=== PATIENT | female | born 1975 | race Caucasian/White ===

== ENCOUNTER 2018-04-26 07:03 | Outpatient (CLI) | payer OTHER, SELFPAY ==
[2018-04-26 08:02] LABS: D-Dimer 285 ng/mlFEU (<500)
== END 2018-04-26 07:04 ==
PROVIDERS: Visit Provider Nurse Practitioner
DX: I27.20 Pulmonary hypertension, unspecified (principal)
CPT/HCPCS: 36415; 85379

== ENCOUNTER 2018-04-29 03:51 | Outpatient (CLI) | payer OTHER, SELFPAY ==
--- NOTE | 2018-04-29 10:00 | PFT_ITS ---
PULMONARY FUNCTION TEST REPORT DATE OF SERVICE - May 04, 2018 REQUESTING PROVIDER - Annette Will N.P. INTERPRETATION OF STUDY Spirometry shows mild obstructive airways disease with no significant bronchodilator response. LUNG VOLUMES - Lung volumes show no evidence of restriction. DIFFUSION CAPACITY- Normal. AIRWAY RESISTANCE - Normal. IMPRESSION Mild obstructive airways disease with no significant bronchodilator response. Clinical correlation recommended. Katerine Boyd M.D. YEVGENIY/renetta T - 05/04/2018 HAND SIGNED COPY OF THIS NOTE IS SCANNED INTO THE EMR
[2018-04-29] MEDS: Albuterol HFA 18 GM 200 PUFF INH IH (11:14)
[2018-04-29] MEDS: Inhaler, Assist Device 1 EACH MC (11:14)
== END 2018-04-29 03:52 ==
PROVIDERS: Visit Provider Nurse Practitioner
DX: R06.00 Dyspnea, unspecified (principal); I27.20 Pulmonary hypertension, unspecified; Z87.891 Personal history of nicotine dependence; J98.8 Other specified respiratory disorders
CPT/HCPCS: 94060; 94150; 94726; 94729

== ENCOUNTER 2018-09-03 17:04 | Outpatient (REF) | payer OTHER, SELFPAY ==
[2018-09-03 21:03] LABS: Iron 38 ug/dL (50-175); Total Iron Binding Capacity 341 ug/dL (250-450); Transferrin Sat 11 % (15-50)
[2018-09-03 21:28] LABS: ALT 26 U/L (12-78); AST 16 U/L (15-37); Albumin 3.5 g/dL (3.4-5.0); Alkaline Phosphatase 88 U/L (46-116); Anion Gap 9.5 mmol/L (3-11); BUN 11 mg/dL (7-18); Bilirubin, Total 0.2 mg/dL (0.2-1.0); CO2 27.5 mmol/L (21.0-32.0); CREATININE 0.83 mg/dL (0.55-1.02); Calcium 9.3 mg/dL (8.5-10.1); Chloride 104 mmol/L (98-107); Ferritin 43 ng/mL (8-388); Glucose 91 mg/dL (70-100); Sodium 141 mmol/L (136-145); TSH (W/Ref FT4) 1.26 uIU/mL (0.358-3.74); Total Protein 7.7 g/dL (6.4-8.2); Vitamin B12 435 pg/mL (193-986)
== END 2018-09-03 17:24 ==
LOC: NCHCN 17:04
PROVIDERS: PCP Nurse Practitioner; Visit Provider Nurse Practitioner
DX: L65.9 Nonscarring hair loss, unspecified (principal)
CPT/HCPCS: 80053; 82607; 82728; 83540; 83550; 84443; 85025

== ENCOUNTER 2018-09-09 13:04 | Outpatient (REF) | payer OTHER, SELFPAY ==
[2018-09-09 18:35] LABS: Abs Immature Grans 0.02 k/cumm (0.0-0.09); Absolute Basophil Count 0.05 k/cumm (0.0-0.2); Absolute Eosinophil Count 0.16 k/cumm (0.0-0.7); Absolute Lymphocyte Count 2.22 k/cumm (1.2-3.4); Absolute Monocyte Count 0.66 k/cumm (0.11-0.7); Absolute Neutrophil Count 6.54 k/cumm (1.2-6.7); Basophils % 0.5; Eosinophils % 1.7; HCT 42.1 % (36.0-46.0); HGB 13.7 g/dL (12.0-15.5); Immature Grans % 0.2; Mean Corp. HGB Concentration 32.5 g/dL (32.0-36.0); Mean Corpuscular Hemoglobin 26.9 pg (27.0-33.0); Mean Corpuscular Volume 82.5 fL (80-95); Monocytes % 6.8; Neutrophils % 67.8; Platelet Count 406 x1000/uL (130-400); RBC Distribution Width 13.7 % (11.7-14.6); White Blood Cell Count 9.65 k/cumm (4.4-10.8)
== END 2018-09-09 13:24 ==
LOC: NCHCN 13:04
PROVIDERS: PCP Nurse Practitioner; Visit Provider Nurse Practitioner
DX: L65.9 Nonscarring hair loss, unspecified (principal)
CPT/HCPCS: 85025

== ENCOUNTER 2018-12-16 07:18 | Outpatient (CLI) | payer BC, SELFPAY ==
[2018-12-16 07:50] LABS: Abs Immature Grans 0.01 k/cumm (0.0-0.09); Absolute Basophil Count 0.07 k/cumm (0.0-0.2); Absolute Eosinophil Count 0.16 k/cumm (0.0-0.7); Absolute Lymphocyte Count 1.59 k/cumm (1.2-3.4); Absolute Monocyte Count 0.58 k/cumm (0.11-0.7); Absolute Neutrophil Count 4.02 k/cumm (1.2-6.7); Basophils % 1.1; Eosinophils % 2.5; HCT 41.4 % (36.0-46.0); HGB 13.7 g/dL (12.0-15.5); Immature Grans % 0.2; Lymphocytes % 24.7; Mean Corp. HGB Concentration 33.1 g/dL (32.0-36.0); Mean Corpuscular Hemoglobin 27.8 pg (27.0-33.0); Mean Platelet Volume 9.8 fL (8.0-11.0); Neutrophils % 62.5; Platelet Count 317 x1000/uL (130-400); RBC 4.93 m/cumm (4.00-5.20); RBC Distribution Width 13.6 % (11.7-14.6); White Blood Cell Count 6.43 k/cumm (4.4-10.8)
[2018-12-16 08:48] LABS: Iron 83 ug/dL (50-175); Total Iron Binding Capacity 312 ug/dL (250-450); Transferrin Sat 27 % (15-50)
[2018-12-16 09:05] LABS: Ferritin 76 ng/mL (8-388)
== END 2018-12-16 07:38 ==
PROVIDERS: PCP Nurse Practitioner; Visit Provider Nurse Practitioner
DX: E61.1 Iron deficiency (principal)
CPT/HCPCS: 36415; 82728; 83540; 83550; 85025

== ENCOUNTER 2019-03-30 09:58 | Outpatient (CLI) | payer BC, SELFPAY ==
--- NOTE | 2019-03-30 14:32 | DI.RAD_ITS ---
SYMPTOM/DIAGNOSIS: LEFT HIP PAIN M25.552 LEFT HIP: Two views. Mild degenerative changes are seen of the hips bilaterally. The bones are intact and normally mineralized. The sacroiliac joints and symphysis pubis appear well maintained. The soft tissues are unremarkable. IMPRESSION: Mild degenerative changes of the hips.
--- NOTE | 2019-03-30 14:33 | DI.RAD_ITS ---
SYMPTOM/DIAGNOSIS: LOW BACK KPAIN, M54.5 LUMBAR SPINE: AP, lateral and bilateral oblique views of the lumbar spine. There is normal alignment. No spondylolysis or spondylolisthesis. There are degenerative changes seen at the facets at L5-S1. There is a vacuum disc space narrowing and end plate osteophytes at L5-S1. L5 is a limbus vertebra. Mild small end plate osteophytes are seen at L4-5 and L3-L4. The bones are normally mineralized. IMPRESSION: Mild degenerative changes seen in the lumbar spine.
== END 2019-03-30 10:18 ==
PROVIDERS: PCP Nurse Practitioner Family; Visit Provider Nurse Practitioner Family
DX: M54.5 Low back pain (principal); M25.78 Osteophyte, vertebrae; M47.816 Spondylosis without myelopathy or radiculopathy, lumbar region; M25.552 Pain in left hip; M16.0 Bilateral primary osteoarthritis of hip
CPT/HCPCS: 72110; 73502

== ENCOUNTER 2019-05-18 12:18 | Emergency (ER) | payer BC, SELFPAY ==
[2019-05-18 12:23] VITALS: BP 137/86; PULSE 98; RESP 16; TEMP 36.5; O2SAT 99
--- NOTE | 2019-05-18 12:38 | ED.GENADUL_ITS ---
Discharge Plan Disposition Patient Disposition: HOME Condition: Stable Discharge Details Chief Complaint: Nk/Back Pain Clinical Impression: Low back pain Primary Care Provider: Laura Hooper ED Provider: Prakash Stewart Home Meds and New Rx's Prescriptions: New prednisone 20 mg tablet 60 mg PO DAILY 5 Days Qty: 15 RF: 0 gabapentin 100 mg capsule 100 mg PO TID Qty: 30 RF: 0 Continued ibuprofen 100 MG/5 ML suspension 400 mg PO Q4H PRN RF: 0 acetaminophen [Tylenol] 325 MG tablet 325 mg PO Q4H PRN RF: 0 omeprazole [Prilosec] 20 MG capsule,delayed release(DR/EC) 40 mg PO DAILY RF: 0 paroxetine HCl [Paxil] 30 MG tablet 30 mg PO DAILY RF: 0 norethindrone acetate 5 MG tablet 5 mg PO DAILY Qty: 60 RF: 0 cyclobenzaprine 10 mg Tablet 10 mg PO PRN PRNRF: 0 Discharge Instructions Additional Instructions: follow up as scheduled with your primary care provider and for the MRI if you develop difficulty urinating, severe worsening pain, fevers return to the emergency department Medical Decision Making 43 yo female comes in with lower back pain. HAs been having lower back pain since last July but has worsened over the past week or so and is due to have mri on Thursday. She has been taking nsaids and muscle relaxers and continues to have pain. Denies fevers, chills, weakness. She has no saddle anesthesia, urinary retnetion, normal reflexes and distal senastion and pulses, denies fevers or ivdu, no findings on history or exam to suggest cauda equina or sea so do not feel emergent mri indicated. Has pain over the left lower back over the lateral sacrum, suspect either bursitis or arthritis, less likely sciatica. will start her on steroids and also gabapentin, advised f/u with pcp and return precautions given Differential Diagnosis sciatica, bursitis HPI General Mode of arrival: ambulatory . Date/Time Provider Initiated Documentation: 05/18/19 12:19 . Limitations to Documentation: no limitations . Information obtained by: patient . History of Present Illness 43 year old F presents to the emergency department with the chief complaint of left lower back pain, described as moderate, Quality is described as aching, Patient started experiencing this month(s) (8) and it has been constant. No relieving factors improve symptom(s), No exacerbating factors reported . Patient did receive the following treatments prior to arrival, NSAID Related Data Home Medications Medication Instructions Recorded Confirmed acetaminophen [Tylenol] 325 mg PO Q4H PRN tab-cap 12/13/12 05/18/19 ibuprofen 400 mg PO Q4H PRN ml 12/13/12 05/18/19 omeprazole [Prilosec] 40 mg PO DAILY tab-cap 12/13/12 05/18/19 paroxetine HCl [Paxil] 30 mg PO DAILY tab-cap 10/22/17 05/18/19 norethindrone acetate 5 mg PO DAILY #60 tab-cap 11/09/17 05/18/19 cyclobenzaprine 10 mg PO PRN PRN 05/18/19 05/18/19 gabapentin 100 mg PO TID #30 cap 05/18/19 prednisone 60 mg PO DAILY 5 Days #15 tab 05/18/19 Previous Rx's Medication Instructions Recorded norethindrone acetate 5 mg PO DAILY #60 tab-cap 11/09/17 gabapentin 100 mg PO TID #30 cap 05/18/19 prednisone 60 mg PO DAILY 5 Days #15 tab 05/18/19 Allergies Allergy/AdvReac Type Severity Reaction Status Date / Time bacitracin Allergy Intermediate RASH Unverified 05/18/19 12:27 epinephrine Allergy Intermediate TACHYCARDIA Unverified 05/18/19 12:27 gramicidin D Allergy Intermediate SKIN RASH Unverified 05/18/19 12:27 iodine Allergy Intermediate RESPIRATORY Unverified 05/18/19 12:27 PROBLEMS morphine Allergy Intermediate DIFFICULTY Unverified 05/18/19 12:27 BREATHING neomycin Allergy Intermediate SKIN RASH Unverified 05/18/19 12:27 polymyxin B sulfate Allergy Intermediate SKIN RASH Unverified 05/18/19 12:27 [From Polysporin] HOMATROPHINE Allergy Intermediate TACHYCARDIA Uncoded 05/18/19 12:27 STEROIDS AdvReac Intermediate TACYCARDIA, Uncoded 05/18/19 12:27 HYPOTENSION General Stated Complaint: Nk/Back Pain [place]: 4 Review of Systems Review of Systems All systems reviewed & are unremarkable except as noted in HPI and below Constitutional Denies chills, Denies fever(s) and Denies weakness Cardiovascular Denies chest pain and Denies dyspnea Respiratory Denies dyspnea Gastrointestinal Denies abdominal pain, Denies nausea and Denies vomiting Musculoskeletal Denies joint swelling Neurologic Denies weakness PFSH Medical History Abnormal uterine bleeding Mirnea IUD use x15yr. Removed 08/2017. Episode of menorrhagia 10/2017 - Rx with Norethindrone TID with plan to taper over a month. Anxiety BMI 39.0-39.9,adult Pt has gained 100lbs in the past 10yrs. Cardiac arrhythmia heart palpitations. Depression Surgical History Appendectomy (~2005) Diagnostic Laproscopy (~2004) for eval of pelvic pain, heavy menses. No endometriosis. NVH. Open Carpal Tunnel release (~2002) Right Family History Mother Essential hypertension Father Essential hypertension Grandfather Essential hypertension Grandmother Essential hypertension Other Heart disease Social History Smoking/Tobacco Use Status: Current every day Drug use: Never Do you feel safe at home: Yes Do you feel safe in your relationship?: Yes Exam Const General: no acute distress Orientation: alert HENMT Head: normal to inspection Ears: external ears normal General nose exam: external nose normal Mouth: moist mucous membranes Eyes General: appearance normal, both eyes and all related structures Neck Neck: normal visual inspection Resp Effort & Inspection: normal respiratory effort and able to speak in complete sentences Cardio Rate: regular rate Back/Spine/Pelvis Back: no CVA tenderness Skin General skin exam: no rashes or lesions noted Neuro General: alert and oriented x3 Extrem General: normal to inspection Psych Mental Status: mental status grossly normal Course Vital Signs Temperature 36.5 C 05/18/19 12:23 Pulse 98 H 05/18/19 12:23 Respiratory Rate 16 05/18/19 12:23 Blood Pressure 137/86 05/18/19 12:23 Pulse Oximetry 99 05/18/19 12:23 Temperature 36.5 C 05/18/19 12:23 Temperature Source Temporal Artery Scan 05/18/19 12:23 Pulse 98 H 05/18/19 12:23 Respiratory Rate 16 05/18/19 12:23 Respiratory Effort 05/18/19 12:32 Blood Pressure 137/86 05/18/19 12:23 Blood Pressure Position Standing 05/18/19 12:23 Pulse Oximetry 99 05/18/19 12:23 Oxygen Delivery Method Room Air 05/18/19 12:23 Oxygen Flow Rate 0 05/18/19 12:23
== END 2019-05-18 12:48 | disposition home or self-care (01) ==
LOC: ER 12:44
PROVIDERS: Emergency Provider Emergency Medicine; PCP Nurse Practitioner Family
DX: M54.5 Low back pain (principal)
CPT/HCPCS: 99283

== ENCOUNTER 2019-05-20 01:33 | Outpatient (CLI) | payer BC, SELFPAY ==
--- NOTE | 2019-05-20 15:30 | DI.MRI_ITS ---
SYMPTOMS/DIAGNOSIS: CHRONIC LEFT-SIDED LOW BACK PAIN WITH LEFT-SIDED SCIATICA, M54.42, G89.29, LEFT HIP AND LEG PAIN, NUMBNESS AND TINGLING BELOW THE KNEE MRI OF THE LUMBAR SPINE: Comparison is made with plain films dated March,. T1, T2 and STIR sagittal, T1 and T2 axial sequences were performed. There is sacralization of L5. The lower thoracic levels through L3-4 appear normal. At L3-4, there is a large central and slightly left-sided disc herniation. It causes severe narrowing of the AP dimension of the central canal with compression of nerve roots posteriorly. There are no significant facet degenerative changes and there is no significant neural foraminal narrowing at any level. The L4-5 disc shows small endplate osteophytes and mild disc bulging. There are facet degenerative changes but no significant central canal stenosis or neural foraminal narrowing. There is a rudimentary disc at L5-S1. IMPRESSION: Large central disc herniation at L3-4 causing severe central canal stenosis.
== END 2019-05-20 01:53 ==
PROVIDERS: PCP Nurse Practitioner Family; Visit Provider Physician Assistant Surgical
DX: M54.42 Lumbago with sciatica, left side (principal); M25.552 Pain in left hip; M79.605 Pain in left leg; M51.17 Intervertebral disc disorders with radiculopathy, lumbosacral region; M48.061 Spinal stenosis, lumbar region without neurogenic claudication
CPT/HCPCS: 72148

== ENCOUNTER 2019-06-08 14:24 | Outpatient (REF) | payer BC, SELFPAY ==
[2019-06-08 12:57] LABS: HCT 41.3 % (36.0-46.0); HGB 13.7 g/dL (12.0-15.5); Mean Corp. HGB Concentration 33.2 g/dL (32.0-36.0); Mean Corpuscular Hemoglobin 27.8 pg (27.0-33.0); Mean Corpuscular Volume 83.8 fL (80-95); Mean Platelet Volume 9.7 fL (8.0-11.0); Platelet Count 400 x1000/uL (130-400); RBC 4.93 m/cumm (4.00-5.20); RBC Distribution Width 13.6 % (11.7-14.6); White Blood Cell Count 8.58 k/cumm (4.4-10.8)
[2019-06-08 13:00] LABS: ALT 23 U/L (14-59); AST 15 U/L (15-37); Albumin 4.2 g/dL (3.4-5.0); Alkaline Phosphatase 73 U/L (46-116); Anion Gap 12.4 mmol/L (3-11); BUN 10 mg/dL (7-18); Bilirubin, Total 0.4 mg/dL (0.2-1.0); CO2 24.6 mmol/L (21.0-32.0); CREATININE 0.73 mg/dL (0.55-1.02); Calcium 9.4 mg/dL (8.5-10.1); Chloride 103 mmol/L (98-107); Glucose 96 mg/dL (70-100); Potassium 4.2 mmol/L (3.5-5.1); Sodium 140 mmol/L (136-145); Total Protein 8.3 g/dL (6.4-8.2)
[2019-06-08 13:16] LABS: INR 0.9 (0.9-1.1); PTT Activated 24.8 sec (21.0-31.4); Prothrombin Time 9.4 sec (9.3-11.0)
== END 2019-06-08 14:44 ==
LOC: NCHCN 14:24
PROVIDERS: PCP Nurse Practitioner Family; Visit Provider Nurse Practitioner Family
DX: Z01.818 Encounter for other preprocedural examination (principal)
CPT/HCPCS: 80053; 85027; 85610; 85730

== ENCOUNTER 2019-09-02 07:05 | Outpatient (CLI) | payer MEDICAID, SELFPAY ==
[2019-09-02 07:30] LABS: HCT 40.3 % (36.0-46.0); HGB 13.2 g/dL (12.0-15.5); Mean Corp. HGB Concentration 32.8 g/dL (32.0-36.0); Mean Corpuscular Hemoglobin 27.8 pg (27.0-33.0); Mean Corpuscular Volume 84.8 fL (80-95); Mean Platelet Volume 9.1 fL (8.0-11.0); Platelet Count 416 x1000/uL (130-400); RBC 4.75 m/cumm (4.00-5.20); RBC Distribution Width 12.9 % (11.7-14.6); White Blood Cell Count 8.18 k/cumm (4.4-10.8)
[2019-09-02 09:11] LABS: Iron 73 ug/dL (50-170); Total Iron Binding Capacity 337 ug/dL (250-450); Transferrin Sat 22 % (15-50)
[2019-09-02 09:21] LABS: ALT 23 U/L (14-59); AST 13 U/L (15-37); Calculated LDL 94 mg/dL; Cholesterol 203 mg/dL (<200); Ferritin 45 ng/mL (8-252); HDL Cholesterol 40 mg/dL (40-60); Triglyceride 347 mg/dL (<150)
== END 2019-09-02 07:25 ==
PROVIDERS: PCP Nurse Practitioner Family; Visit Provider Nurse Practitioner Family
DX: E61.1 Iron deficiency (principal); Z13.220 Encounter for screening for lipoid disorders; Z00.00 Encounter for general adult medical examination without abnormal findings
CPT/HCPCS: 36415; 80061; 85027; 82728; 83540; 83550; 84450; 84460

== ENCOUNTER 2019-12-02 10:14 | Outpatient (CLI) | payer OTHER, SELFPAY ==
[2019-12-05 12:51] LABS: SARS-CoV-2 RNA Undetected (Undetected); SARS-CoV-2 Specimen Source Nasopharynx
== END 2019-12-02 10:34 ==
PROVIDERS: PCP Nurse Practitioner Family; Visit Provider Nurse Practitioner Family
DX: Z20.828 Contact with and (suspected) exposure to other viral communicable diseases (principal); Z11.59 Encounter for screening for other viral diseases; R50.9 Fever, unspecified
CPT/HCPCS: 87449; U0003

== ENCOUNTER 2020-02-14 12:02 | Outpatient (REF) | payer OTHER, SELFPAY ==
[2020-02-14 23:58] LABS: COVID-19 RT-PCR UVMMC Result Negative (Negative)
== END 2020-02-14 12:22 ==
LOC: NCHCN 12:02
PROVIDERS: PCP Nurse Practitioner Family; Visit Provider Family Medicine
DX: Z20.828 Contact with and (suspected) exposure to other viral communicable diseases (principal)
CPT/HCPCS: U0003

== ENCOUNTER 2020-03-06 16:47 | Outpatient (REF) | payer OTHER, SELFPAY ==
[2020-03-10 22:08] LABS: SARS-CoV-2 RNA Undetected (Undetected); SARS-CoV-2 Specimen Source Nasopharynx
== END 2020-03-06 17:07 ==
LOC: NCHCN 16:47
PROVIDERS: PCP Nurse Practitioner Family; Visit Provider Nurse Practitioner Family
DX: Z20.828 Contact with and (suspected) exposure to other viral communicable diseases (principal)
CPT/HCPCS: U0003

== ENCOUNTER 2020-06-04 13:56 | Outpatient (REF) | payer OTHER, SELFPAY ==
[2020-06-08 04:04] LABS: Patient Race White; SARS-CoV-2 RNA Undetected (Undetected); SARS-CoV-2 Specimen Source Nasal
== END 2020-06-04 14:16 ==
LOC: NCHCN 13:56
PROVIDERS: PCP Nurse Practitioner Family; Visit Provider Nurse Practitioner Family
DX: J02.9 Acute pharyngitis, unspecified (principal); Z20.828 Contact with and (suspected) exposure to other viral communicable diseases
CPT/HCPCS: U0003

== ENCOUNTER 2020-06-27 15:25 | Outpatient (REF) | payer OTHER, SELFPAY ==
[2020-07-01 03:48] LABS: Patient Race White; SARS-CoV-2 RNA Undetected (Undetected); SARS-CoV-2 Specimen Source Nasal
== END 2020-06-27 15:45 ==
LOC: NCHCN 15:25
PROVIDERS: PCP Nurse Practitioner Family; Visit Provider Nurse Practitioner Family
DX: Z20.828 Contact with and (suspected) exposure to other viral communicable diseases (principal)
CPT/HCPCS: U0003

== ENCOUNTER 2020-09-26 02:43 | Outpatient (CLI) | payer OTHER, SELFPAY ==
--- NOTE | 2020-09-26 | DI.MAMMO_ITS ---
EXAM: MG MAMMO SCREENING CLINICAL HISTORY: SCREENING, Z12.31 TECHNIQUE: Bilateral full field digital CC and MLO mammographic images were obtained with 3D tomosyn thesis and utilizing computer aided detection (CAD). COMPARISON: Available for comparison. FINDINGS: Masses/Architectural Distortion: There are stable nodules in the left breast. There is a nodular asy mmetric density in the upper retroareolar region of the left breast on the MLO view. Microcalcifications: No suspicious pleomorphic-type are seen. Skin Thickening/Nipple Retraction: None. IMPRESSION: 1. Nodular asymmetric density in the upper retroareolar region of the left breast. 2. Follow-up with spot compression view and left breast ultrasound is recommended. BI-RADS Category 0 - Assessment Incomplete: Need additional imaging evaluation Breast Density - Category B - Scattered areas of fibroglandular density Breast density category C or D implies that the patient has dense breast tissue. Dense breast tissue is very common and is not abnormal but dense breast tissue can make it harder to find cancer on a ma mmogram. Also, dense breast tissue may increase their breast cancer risk. This information about the result of the mammogram report was provided to the patient to raise their awareness. Use this report when you speak with the patient about their risks for breast cancer, which includes their family hist ory. At that time, you may recommend for more screening tests (Ultrasound or MRI) as they might be us eful based on their risk. A negative radiographic report should not delay biopsy if a dominant or clinically suspicious mass is present. Up to ten percent of cancers are not identified on mammography. A negative report may reinforce clinical impression. Adenosis and dense breasts may obscure an underlying neoplasm. False positive reports average 6 to 10%. Patient will receive a letter notifying them of these results.
== END 2020-09-26 03:03 ==
PROVIDERS: PCP Nurse Practitioner Family; Visit Provider Nurse Practitioner Family
DX: Z12.31 Encounter for screening mammogram for malignant neoplasm of breast (principal); R92.8 Other abnormal and inconclusive findings on diagnostic imaging of breast
CPT/HCPCS: 77063; 77067

== ENCOUNTER 2020-09-27 18:01 | Outpatient (CLI) | payer OTHER, SELFPAY ==
--- NOTE | 2020-09-27 | DI.US_ITS ---
EXAM: MG MAMMO SCREEN CALL BACK UNI and U/S breast LT limited CLINICAL HISTORY: F/U MAMMO, NODULAR ASYMMETRIC DENSISTY LT BREAST. TECHNIQUE: Craniocaudal and mediolateral oblique Full Field Digital Mammography views of the left br east with Computer Aided Diagnosis followed by Tomosynthesis and left breast ultrasound. COMPARISON: Priors available for comparison. FINDINGS: Mammography/Tomosynthesis: Masses/Architectural Distortion: There is a question of a partially obscured nodule in the retroareol ar region of the left breast. It lies just laterally. Microcalcifictions: No suspicious pleomorphic-type are seen. Skin Thickening/Nipple Retraction: None. Left breast US: Echotexture: Normal appearance of the glandular tissue. Shadowing: No suspicious foci. Cyst: There is a focal dilatation of a duct at the 1 o'clock position of the left breast 1 cm from th e nipple. This may account for the findings mammographically. No suspicious cystic lesions are seen . Solid lesions: None seen. Ductal dilation: None. IMPRESSION: 1. No definite evidence for malignancy. 2. A six-month follow-up left mammogram and ultrasound are requested for re-evaluation. 3. The findings were discussed with the patient on the date of the examination. BI-RADS Category 3 - 6 month - Probably Benign Finding: Recommend follow-up mammography in 6 months Breast Density - Category B - Scattered areas of fibroglandular density Breast density Category C or D implies that the patient has dense breast tissue. Dense breast tissue can make it harder to find cancer on a mammogram. Dense breast tissue is also associated with an incr eased risk of breast cancer. This information about the result of the mammogram report was provided to the patient to raise their awareness. Use this report when you speak with the patient about their risks for breast cancer, which includes their family history. At that time, you may recommend additional screening tests (Ultrasoun d or MRI) as these tests may add significant information. A negative radiographic report should not delay biopsy if a dominant or clinically suspicious mass is present. Up to ten percent of cancers are not identified on mammography. A negative report may reinforce clinical impression. Adenosis and dense breasts may obscure an underlying neoplasm. False positive reports average 6 to 10%. Patient will receive a letter notifying them of these results.
== END 2020-09-27 18:21 ==
PROVIDERS: PCP Nurse Practitioner Family; Visit Provider Nurse Practitioner Family
DX: R92.8 Other abnormal and inconclusive findings on diagnostic imaging of breast (principal)
CPT/HCPCS: 76642; 77063; 77067

== ENCOUNTER 2021-03-27 02:21 | Outpatient (CLI) | payer OTHER, SELFPAY ==
--- NOTE | 2021-03-27 | DI.US_ITS ---
Exam(s) MG MAMMO DIAGNOSTIC UNI US BREAST LT LIMITED EXAM: MG MAMMO DIAGNOSTIC UNI and COMPLETE LEFT BREAST ULTRASOUND CLINICAL HISTORY: DIAGNOSTIC, F/U ABNL MAMMO, R92.8. TECHNIQUE: Both CC and MLO views of the left breast were performed. Obtained with 3D Tomosynthesist echnique and utilizing computer aided detection (CAD). Left breast ultrasound was also reviewed COMPARISON: Prior mammograms dating back to 2014, the most recent being SEPTEMBER 2020.. Prior ultras ound September 2020 was also reviewed. FINDINGS: LEFT BREAST DIAGNOSTIC MAMMOGRAM: No significant change from the prior September 2020 study. Benign-appearing nodules in the upper outer quadrant having the appearance of benign lymph nodes are again noted. In the upper outer retroareolar region the slightly asymmetric density previously described is unchan ged. This is demonstrated to be a slightly prominent duct on ultrasound. No malignant-appearing izabel rocalcification groups in the left breast. LEFT BREAST ULTRASOUND: At the 1 o'clock position there is a benign-appearing lymph node measuring 5 x 4 millimeters located 5 cm in from the nipple. This corresponds to 1 of the benign-appearing nodules on the mammogram. No other focal nodule seen in all 4 quadrants. Slightly prominent ducts are seen in the retroareolar r egion, the most prominent being at 2 o'clock position and exhibiting a diameter of 4-5 millimeters, t his corresponding to what was described on the mammogram September 2020 (and is unchanged on today's ma mmogram). There is no solid lesions seen within this duct nor within the other retroareolar region d ucts. No other significant focal findings in the left breast 4 quadrants nor in the retroareolar reg ion. Left axilla is negative for significant adenopathy. IMPRESSION: No radiographic/mammographic evidence of malignancy in left breast. Stable benign-appearing left joan ast findings. Also benign-appearing left breast ultrasound findings as described above. Appropriate follow-up is to keep this patient yearly mammogram schedule, this implying the next [facility] mammogram would be in September 2021. The patient was informed of the findings and follow-up recommendations prior to leaving the [facility] t today. BI-RADS Category 3 - 6 month - Probably Benign Finding: Recommend follow-up mammography in 6 months Breast Density - Category C - Heterogeneously dense Breast density Category C or D implies that the patient has dense breast tissue. Dense breast tissue can make it harder to find cancer on a mammogram. Dense breast tissue is also associated with an incr eased risk of breast cancer. This information about the result of the mammogram report was provided to the patient to raise their awareness. Use this report when you speak with the patient about their risks for breast cancer, which includes their family history. At that time, you may recommend additional screening tests (Ultrasoun d or MRI) as these tests may add significant information. A negative radiographic report should not delay biopsy if a dominant or clinically suspicious mass is present. Up to ten percent of cancers are not identified on mammography. A negative report may reinforce clinical impression. Adenosis and dense breasts may obscure an underlying neoplasm. False positive reports average 6 to 10%. Patient will receive a letter notifying them of these results.
== END 2021-03-27 02:41 ==
PROVIDERS: PCP Nurse Practitioner Family; Visit Provider Nurse Practitioner Family
DX: R92.8 Other abnormal and inconclusive findings on diagnostic imaging of breast (principal); R92.2 Inconclusive mammogram
CPT/HCPCS: 76642; 77061; 77065; G0279

== ENCOUNTER 2021-09-13 17:07 | Outpatient (REF) | payer OTHER, SELFPAY ==
--- NOTE | 2021-09-13 16:00 | PAPFT_PTH ---
PATIENT: Helena Dyer LOC: [facility] U#:[id number] AGE/SX: 46/F ROOM: RE09/13/[address]: Laura Hooper : 1975 BED: DIS: 09/13/2021 SPEC #: [id number] RECD: 09/16/21 13:00 STATUS: KAREEM BRANDT #: [id number] NICK: 09/13/21 16:[address]: Laura Hooper DEPT: [facility] Cytology RECD BY: Jenae Zhu Tissues: 1 - CX/ENDOCX FOR PAP SMEARS Procedures: PAP THIN PREP/UVM Screening HPV DNA PROBE Comments: [id number]
== END 2021-09-13 17:08 | disposition home or self-care (01) ==
LOC: NCHCN 17:07
PROVIDERS: PCP Nurse Practitioner Family; Visit Provider Nurse Practitioner Family
DX: Z12.4 Encounter for screening for malignant neoplasm of cervix (principal); Z11.51 Encounter for screening for human papillomavirus (HPV)
CPT/HCPCS: 88142; 87624

== ENCOUNTER 2021-10-10 01:54 | Outpatient (CLI) | payer OTHER, SELFPAY ==
--- NOTE | 2021-10-10 07:30 | DI.MAMMO_ITS ---
Exam(s) MAMMO SCREENING EXAM: MAMMO SCREENING CLINICAL HISTORY: SCREENING, Z12.31 TECHNIQUE: Mammograms were interpreted according to the usual protocol including computer analysis w [facility] CAD system, tomosynthesis and C-view imaging. COMPARISON: FINDINGS: The breasts are heterogeneously dense. No dominant mass or clumped microcalcification is identified in either breast. The current examination is compared with previous examinations including September 08 and there has been no gross interval change in appearance in comparison with the prior studies. IMPRESSION: No specific evidence of malignancy at this time. Routine screening examinations are suggested at yea rly intervals in this age group according to the ACS ACR guidelines. BI-RADS Category 1 - Negative Breast Density - Category C - Heterogeneously dense
== END 2021-10-10 02:14 ==
PROVIDERS: PCP Nurse Practitioner Family; Visit Provider Nurse Practitioner Family
DX: Z12.31 Encounter for screening mammogram for malignant neoplasm of breast (principal); R92.8 Other abnormal and inconclusive findings on diagnostic imaging of breast
CPT/HCPCS: 77063; 77067

== ENCOUNTER 2021-10-10 02:55 | Outpatient (CLI) | payer OTHER, SELFPAY ==
[2021-10-10 07:24] LABS: HCT 38.7 % (36.0-46.0); HGB 11.9 g/dL (11.2-15.7); MCH 25.3 pg (27.0-33.0); MCHC 30.7 % (32.0-36.0); MCV 82.2 fL (80-95); Platelet Count 354 10^3/uL (130-400); RBC 4.71 10^6/uL (3.93-5.22); RDW 13.5 % (11.7-14.6); RDW-SD 40.7 fL; WBC 6.12 10^3/uL (4.4-10.8)
[2021-10-10 08:57] LABS: ALT 28 U/L (14-59); AST 15 U/L (15-37); Anion Gap 11.3 mmol/L (3-11); BUN 12 mg/dL (7-18); CO2 25.7 mmol/L (21.0-32.0); CREATININE 0.7 mg/dL (0.55-1.02); Calcium 8.9 mg/dL (8.5-10.1); Calculated LDL 102 mg/dL (<100); Chloride 104 mmol/L (98-107); Cholesterol 177 mg/dL (<200); Glucose 93 mg/dL (74-106); HDL Cholesterol 42 mg/dL (40-60); Potassium 4.4 mmol/L (3.5-5.1); Sodium 141 mmol/L (136-145); TSH (W/Ref FT4) 1.15 uIU/mL (0.36-3.74); Triglyceride 167 mg/dL (<150)
== END 2021-10-10 02:56 | disposition home or self-care (01) ==
LOC: LBO 02:55
PROVIDERS: PCP Nurse Practitioner Family; Visit Provider Nurse Practitioner Family
DX: E66.9 Obesity, unspecified (principal); R00.2 Palpitations; F41.1 Generalized anxiety disorder
CPT/HCPCS: 36415; 80048; 80061; 85027; 84443; 84450; 84460

== ENCOUNTER 2022-10-28 16:16 | Outpatient (REF) | payer SELFPAY ==
[2022-10-28 14:44] LABS: HCT 39.1 % (36.0-46.0); HGB 12.5 g/dL (11.2-15.7); MCV 78 fL (80-95); MPV 9.6 fL (8.0-11.0); Platelet Count 432 10^3/uL (130-400); RBC 5.01 10^6/uL (3.93-5.22); RDW-SD 39.4 fL; WBC 8.51 10^3/uL (4.4-10.8)
[2022-10-28 15:06] LABS: ALT 24 U/L (14-59); AST 19 U/L (15-37); Albumin 3.9 g/dL (3.4-5.0); Alkaline Phosphatase 100 U/L (46-116); Anion Gap 10.5 mmol/L (3-11); BUN 10 mg/dL (7-18); Bilirubin, Total 0.3 mg/dL (0.2-1.0); CO2 27.5 mmol/L (21.0-32.0); CREATININE 0.8 mg/dL (0.55-1.02); Calcium 9.5 mg/dL (8.5-10.1); Calculated LDL 119 mg/dL (<100); Chloride 104 mmol/L (98-107); Cholesterol 215 mg/dL (<200); Estimated GFR 90.83 (mL/min/1.73m2); Glucose 89 mg/dL (74-106); HDL Cholesterol 52 mg/dL (40-60); Potassium 3.9 mmol/L (3.5-5.1); Sodium 142 mmol/L (136-145); TSH (W/Ref FT4) 0.88 uIU/mL (0.36-3.74); Triglyceride 222 mg/dL (<150)
[2022-10-28 16:18] LABS: Hemoglobin A1C 5.7 % (<5.7)
[2022-10-29 12:26] LABS: Iron 42 ug/dL (50-170)
== END 2022-10-28 16:17 | disposition home or self-care (01) ==
LOC: NCHCN 16:16
PROVIDERS: PCP Nurse Practitioner Family; Visit Provider Nurse Practitioner Family
DX: R53.83 Other fatigue (principal); E66.9 Obesity, unspecified; Z00.00 Encounter for general adult medical examination without abnormal findings
CPT/HCPCS: 80053; 80061; 85027; 83036; 83540; 84443

== ENCOUNTER 2024-01-12 16:25 | Outpatient (REF) | payer OTHER, SELFPAY ==
[2024-01-12 20:37] LABS: HGB 12.4 g/dL (11.2-15.7); MCH 27.3 pg (27.0-33.0); MCHC 31.8 % (32.0-36.0); MCV 86 fL (80-95); MPV 9.7 fL (8.0-11.0); Platelet Count 353 10^3/uL (130-400); RBC 4.55 10^6/uL (3.93-5.22); RDW-SD 44.2 fL; WBC 10.92 10^3/uL (4.4-10.8)
[2024-01-12 21:03] LABS: Hemoglobin A1C 5.7 % (<5.7)
[2024-01-12 21:04] LABS: ALT 26 U/L (14-59); AST 17 U/L (15-37); Albumin 3.4 g/dL (3.4-5.0); Alkaline Phosphatase 85 U/L (46-116); Anion Gap 7.7 mmol/L (3-11); BUN 11 mg/dL (7-18); Bilirubin, Total 0.3 mg/dL (0.2-1.0); CO2 28.3 mmol/L (21.0-32.0); CREATININE 0.7 mg/dL (0.55-1.02); Chloride 105 mmol/L (98-107); Estimated GFR 105.95 (mL/min/1.73m2); Glucose 91 mg/dL (74-106); Potassium 4.6 mmol/L (3.5-5.1); Sodium 141 mmol/L (136-145); Total Protein 7.4 g/dL (6.4-8.2)
[2024-01-12 21:26] LABS: Calculated LDL 88 mg/dL (<100); Cholesterol 204 mg/dL (<200); HDL Cholesterol 43 mg/dL (40-60); Triglyceride 368 mg/dL (<150)
== END 2024-01-12 16:26 | disposition home or self-care (01) ==
LOC: NCHCN 16:25
PROVIDERS: PCP Nurse Practitioner Family; Visit Provider Nurse Practitioner Family
DX: Z00.00 Encounter for general adult medical examination without abnormal findings (principal); E66.9 Obesity, unspecified
CPT/HCPCS: 80053; 80061; 85027; 83036

== ENCOUNTER 2025-01-31 21:36 | Outpatient (REF) | payer OTHER, SELFPAY ==
[2025-01-31 22:13] LABS: HCT 38.7 % (36.0-46.0); HGB 11.7 g/dL (11.2-15.7); MCH 24.7 pg (27.0-33.0); MCHC 30.2 % (32.0-36.0); MCV 82 fL (80-95); MPV 9.9 fL (8.0-11.0); Platelet Count 375 10^3/uL (130-400); RBC 4.73 10^6/uL (3.93-5.22); RDW 14.3 % (11.7-14.6); RDW-SD 42.3 fL; WBC 7.95 10^3/uL (4.4-10.8)
[2025-01-31 22:57] LABS: ALT 23 U/L (14-59); AST 17 U/L (15-37); Albumin 3.5 g/dL (3.4-5.0); Alkaline Phosphatase 93 U/L (46-116); BUN 11 mg/dL (7-18); Bilirubin, Total 0.2 mg/dL (0.2-1.0); CREATININE 0.7 mg/dL (0.55-1.02); Calculated LDL 90 mg/dL (<100); Chloride 105 mmol/L (98-107); Cholesterol 192 mg/dL (<200); Glucose 93 mg/dL (74-106); HDL Cholesterol 45 mg/dL (>or=50); Potassium 3.8 mmol/L (3.5-5.1); Sodium 140 mmol/L (136-145); Total Protein 7.4 g/dL (6.4-8.2); Triglyceride 285 mg/dL (<150)
[2025-01-31 23:16] LABS: Hemoglobin A1C 5.6 % (<5.7)
[2025-02-01 11:31] LABS: Iron 25 ug/dL (50-170); Total Iron Binding Capacity 393 ug/dL (250-450); Transferrin Sat 6 % (15-50)
[2025-02-01 15:44] LABS: Ferritin 11 ng/mL (8-252)
== END 2025-01-31 21:37 | disposition home or self-care (01) ==
LOC: NCHCN 21:36
PROVIDERS: PCP Nurse Practitioner Family; Visit Provider Nurse Practitioner Family
DX: Z00.00 Encounter for general adult medical examination without abnormal findings (principal); Z13.1 Encounter for screening for diabetes mellitus; R71.8 Other abnormality of red blood cells
CPT/HCPCS: 80053; 80061; 85027; 82728; 83036; 83540; 83550